=== PATIENT | female | born 1965 | race Caucasian/White ===

== ENCOUNTER 2019-11-26 09:39 | Emergency (ER) | payer OTHER ==
[~2019-11-26] VITALS: Ht 167.6 cm; Wt 79.4 kg
--- NOTE | 2019-11-26 09:50 | NUR ---
PT SEEN AND EXAMINED BY
--- NOTE | 2019-11-26 09:53 | NUR ---
TECH AT BEDSIDE FOR EKG.
--- NOTE | 2019-11-26 10:05 | NUR ---
[employer]ODUCTION [employer] SCHEDULER AT BEDSIDE FOR XRAY.
[2019-11-26] MEDS ORDERED: METOPROLOL TARTRATE 50 MG TABLET ONE (10:22)
[2019-11-26] MEDS ORDERED: METOPROLOL TARTRATE 50 MG TABLET PO ONE (10:30)
--- NOTE | 2019-11-26 10:30 | NUR ---
Dc home instruction given agrees to see PMD in 2 days
--- NOTE | 2019-11-26 10:30 | NUR ---
Patient discharged to home in stable condition. Written and verbal after care instructions given. Patient verbalizes understanding of instruction.
[2019-11-26 10:31] VITALS: BP 145/78
== END 2019-11-26 10:35 ==
LOC: ER 09:45
DX: I10 Essential (primary) hypertension (principal); Z86.73 Personal history of transient ischemic attack (TIA), and cerebral infarction without residual deficits
CPT/HCPCS: 71045-TC